=== PATIENT | female | born 1945 | race Caucasian/White ===

== ENCOUNTER 2018-06-10 10:00 | Outpatient (RCR) | END 2018-06-11 23:59 | LOC: NEWBEG 10:00 | PROVIDERS: ATTEND Psychiatry & Neurology Psychiatry | DX: F41.9 Anxiety disorder, unspecified (principal) | CPT/HCPCS: 90792; 90853 ==

== ENCOUNTER 2018-07-10 10:00 | Outpatient (RCR) | END 2018-07-12 23:59 | LOC: NEWBEG 10:00 | PROVIDERS: ATTEND Psychiatry & Neurology Psychiatry | DX: F41.9 Anxiety disorder, unspecified (principal) | CPT/HCPCS: 90853; 99214 ==

== ENCOUNTER 2018-08-07 10:00 | Outpatient (RCR) | payer OTHER | END 2018-08-11 23:59 | LOC: NEWBEG 10:00 | PROVIDERS: ATTEND Psychiatry & Neurology Psychiatry | DX: F41.9 Anxiety disorder, unspecified (principal) | CPT/HCPCS: 90853; 99214 ==

== ENCOUNTER 2018-09-11 10:00 | Outpatient (RCR) | END 2018-09-11 23:59 | LOC: NEWBEG 10:00 | PROVIDERS: ATTEND Psychiatry & Neurology Psychiatry | DX: F41.9 Anxiety disorder, unspecified (principal) | CPT/HCPCS: 90853; 99213 ==

== ENCOUNTER 2018-11-11 10:00 | Outpatient (RCR) | END 2018-11-11 23:59 | LOC: NEWBEG 10:00 | PROVIDERS: ATTEND Psychiatry & Neurology Psychiatry | DX: F41.9 Anxiety disorder, unspecified (principal) | CPT/HCPCS: 90853; 99213 ==

== ENCOUNTER 2018-12-09 10:00 | Outpatient (RCR) | END 2018-12-12 23:59 | LOC: NEWBEG 10:00 | PROVIDERS: ATTEND Psychiatry & Neurology Psychiatry | DX: F41.9 Anxiety disorder, unspecified (principal) | CPT/HCPCS: 90853; 99213 ==

== ENCOUNTER 2019-01-06 10:00 | Outpatient (RCR) | END 2019-01-09 23:59 | LOC: NEWBEG 10:00 | PROVIDERS: ATTEND Psychiatry & Neurology Psychiatry | DX: F41.9 Anxiety disorder, unspecified (principal) | CPT/HCPCS: 90853; 99213 ==

== ENCOUNTER 2019-02-07 10:00 | Outpatient (RCR) | END 2019-02-09 23:59 | LOC: NEWBEG 10:00 | PROVIDERS: ATTEND Psychiatry & Neurology Psychiatry | DX: F41.9 Anxiety disorder, unspecified (principal) | CPT/HCPCS: 90853; 99213 ==

== ENCOUNTER 2019-03-10 10:00 | Outpatient (RCR) | END 2019-03-11 23:59 | LOC: NEWBEG 10:00 | PROVIDERS: ATTEND Psychiatry & Neurology Psychiatry | DX: F41.9 Anxiety disorder, unspecified (principal) | CPT/HCPCS: 90853; 99213 ==

== ENCOUNTER 2019-03-28 10:00 | Outpatient (RCR) | END 2019-04-11 23:59 | LOC: NEWBEG 10:00 | PROVIDERS: ATTEND Psychiatry & Neurology Psychiatry | DX: F41.9 Anxiety disorder, unspecified (principal) | CPT/HCPCS: 90853; 99213 ==